=== PATIENT | female | born 1960 | race Caucasian/White ===

== ENCOUNTER → 2017-05-25 | Outpatient (CLI) | payer OTHER ==
[~2017-05-25] MED LIST: NAPROSYN375 MG PO; NAPROSYN500 MG PO; PREDNISONE50 MG PO; PROPRANOLOL HCL10 MG PO; PROPRANOLOL10 MG PO; ULTRAM50 MG PO
[2017-05-25 08:13] LABS: BASO % 0.4 % (0.0-1.0); EOS # 0.3 10*3/uL (0.0-0.4); EOS % 3.7 % (1.0-4.0); HEMATOCRIT 41.8 % (37.0-47.0); HEMOGLOBIN 13.8 g/dl (12.0-16.0); LYMPH # 1.3 10*3/uL (1.3-4.4); LYMPH % 17.7 % (27.0-41.0); MEAN CELL VOLUME 90.3 fl (81.0-99.0); MEAN CORPUSCULAR HGB 29.8 pg (27.0-31.0); MEAN PLATELET VOLUME 10.3 fl (9.6-12.3); MONO # 0.4 10*3/uL (0.1-1.0); MONO % 5.1 % (3.0-9.0); NEUT # 5.1 10*3/uL (2.3-7.9); NEUT % 72.7 % (47.0-73.0); PLATELET COUNT AUTOMATED 216 10*3/uL (130-400); RED BLOOD COUNT 4.63 10*6/uL (4.10-5.10); RED CELL DISTRI WIDTH 12.9 % (0-14.5); WHITE BLOOD COUNT 7.1 10*3/uL (4.8-10.8)
[2017-05-25 08:51] LABS: ALBUMIN 3.7 gm/dl (3.1-4.5); BUN 18 mg/dl (7-24); CHLORIDE 104 mmol/L (98-107); POTASSIUM 3.9 mmol/L (3.5-5.1); SGOT/AST 15 IU/L (3-35); SGPT/ALT 30 U/L (12-78); SODIUM 139 mmol/L (136-145)
[2017-05-25 09:02] LABS: ALKALINE PHOSPHATASE 74 U/L (45-117); CHOLESTEROL 229 mg/dL (<200); CREATININE 0.86 mg/dL (0.55-1.02); HDL CHOLESTEROL 72 mg/dl (40-60); LDL CHOLESTEROL 135 mg/dL (9-159); TOTAL PROTEIN 7.6 gm/dL (6.4-8.2); TRIGLYCERIDES 111 mg/dl (<150); VLDL CHOLESTEROL 22 mg/dL (6-40)
== END | disposition home or self-care (01) ==
LOC: LAB 07:28
PROVIDERS: Internal Medicine
DX: I10 Essential (primary) hypertension (principal); E78.00 Pure hypercholesterolemia, unspecified

== ENCOUNTER → 2017-10-28 | Outpatient (CLI) | payer OTHER | END | disposition home or self-care (01) | LOC: RAD 12:01 | DX: M47.892 Other spondylosis, cervical region (principal); M48.02 Spinal stenosis, cervical region; M46.02 Spinal enthesopathy, cervical region ==

== ENCOUNTER → 2018-01-27 | Outpatient (CLI) | payer OTHER | END | disposition home or self-care (01) | LOC: CARD 01-21 11:30 | DX: I34.0 Nonrheumatic mitral (valve) insufficiency (principal); I10 Essential (primary) hypertension ==

== ENCOUNTER → 2018-02-04 | Outpatient (CLI) | payer OTHER ==
--- NOTE | ~2018-02-04 | HM ---
[place], [place] HOLTER MONITOR REPORT NAME[id number] UNIT #: [id number] ROOM: DOCTOR: JASWANT MATSON MD BIRTHDATE: [birth year] DOS: 02/08/2018 48-HOUR HOLTER MONITOR REFERRING PHYSICIAN: Dr. Pollard. INDICATIONS: Palpitations. FINDINGS: 1. The patient underwent standard protocol 48-hour Holter monitoring. The patient's baseline rhythm was sinus with an average heart rate of 80 beats per minute with the minimum heart rate 56 beats per minute. The maximum heartbeat of 133 beats per minute. 2. Supraventricular activity: The patient was noted to have a total of 89 supraventricular beats with one 4-beat run of atrial tachycardia. 3. Ventricular activity: The patient was noted to have 1838 PVCs, which represents less than 1% of the total duration of monitoring. 4. No significant blocks, pauses, or bradycardia. 5. No significant diary entries. SUMMARY OF FINDINGS: 1. Benign Holter with very rare PACs. The patient with relatively frequent PVCs. 2. arrhythmias were noted. 3. No significant diary entries with correlating any symptoms. JASWANT MATSON MD CM:HOLTER:HOLTER MONITOR REPORT [id number] JASWANT MATSON MD
== END | disposition home or self-care (01) ==
LOC: CARD 09:12
DX: R00.2 Palpitations (principal)

== ENCOUNTER → 2018-02-18 | Outpatient (CLI) | payer OTHER ==
[2018-02-18 09:43] LABS: BASO # 0.1 10*3/uL (0.0-0.1); BASO % 0.8 % (0.0-1.0); EOS # 0.2 10*3/uL (0.0-0.4); EOS % 3.9 % (1.0-4.0); HEMATOCRIT 43.2 % (37.0-47.0); HEMOGLOBIN 13.9 g/dl (12.0-16.0); LYMPH # 1.2 10*3/uL (1.3-4.4); LYMPH % 19.8 % (27.0-41.0); MEAN CELL VOLUME 90.4 fl (81.0-99.0); MEAN CORPUSCULAR HGB 29.1 pg (27.0-31.0); MEAN CORPUSCULAR HGB CONC 32.2 g/dl (33.0-37.0); MEAN PLATELET VOLUME 10.3 fl (9.6-12.3); MONO # 0.3 10*3/uL (0.1-1.0); MONO % 5.5 % (3.0-9.0); NEUT # 4.3 10*3/uL (2.3-7.9); NEUT % 69.7 % (47.0-73.0); PLATELET COUNT AUTOMATED 226 10*3/uL (130-400); RED BLOOD COUNT 4.78 10*6/uL (4.10-5.10); RED CELL DISTRI WIDTH 12.3 % (0-14.5); WHITE BLOOD COUNT 6.2 10*3/uL (4.8-10.8)
[2018-02-18 10:13] LABS: ALBUMIN 3.7 gm/dl (3.1-4.5); BUN 19 mg/dl (7-24); CHLORIDE 105 mmol/L (98-107); CHOLESTEROL 213 mg/dL (<200); CREATININE 0.86 mg/dL (0.55-1.02); POTASSIUM 3.8 mmol/L (3.5-5.1); SGOT/AST 12 IU/L (3-35); SGPT/ALT 26 U/L (12-78); SODIUM 139 mmol/L (136-145); TRIGLYCERIDES 107 mg/dl (<150); VLDL CHOLESTEROL 21 mg/dL (6-40)
[2018-02-18 10:22] LABS: ALKALINE PHOSPHATASE 77 U/L (45-117); HDL CHOLESTEROL 63 mg/dl (40-60); LDL CHOLESTEROL 129 mg/dL (9-159); TOTAL PROTEIN 7.4 gm/dL (6.4-8.2)
== END | disposition home or self-care (01) ==
LOC: LAB 08:09
PROVIDERS: Internal Medicine
DX: I10 Essential (primary) hypertension (principal); E78.00 Pure hypercholesterolemia, unspecified; M94.0 Chondrocostal junction syndrome [Tietze]

== ENCOUNTER → 2018-03-09 | Outpatient (CLI) | payer OTHER | END | disposition home or self-care (01) | LOC: CT 07:39 | DX: R91.8 Other nonspecific abnormal finding of lung field (principal) ==

== ENCOUNTER 2020-07-14 00:20 | Emergency (ER) | payer OTHER ==
[~2020-07-14] VITALS: Ht 162.5 cm; Wt 44.5 kg
== END 2020-07-14 01:19 | disposition home or self-care (01) ==
LOC: ED 00:20
DX: K64.4 Residual hemorrhoidal skin tags (principal); Z79.899 Other long term (current) drug therapy